=== PATIENT | male | born 1990 | race Caucasian/White ===

== ENCOUNTER 2017-12-26 03:57 | Emergency (ER) | payer MEDICAID | END 2017-12-26 05:49 | disposition home or self-care (01) | LOC: FTE 03:57 | DX: L98.9 Disorder of the skin and subcutaneous tissue, unspecified (principal); F17.210 Nicotine dependence, cigarettes, uncomplicated; Z48.00 Encounter for change or removal of nonsurgical wound dressing | CPT/HCPCS: 93005; 99283-25 ==

== ENCOUNTER 2018-10-15 14:11 | Emergency (ER) | payer SELFPAY, MEDICAID | END 2018-10-15 17:04 | disposition home or self-care (01) | LOC: FTE 14:11 | DX: R68.84 Jaw pain (principal) | CPT/HCPCS: 70486; 99284-25 ==